=== PATIENT | male | born 1985 | race Caucasian/White ===

== ENCOUNTER 2021-06-04 12:37 | Emergency (ER) | payer OTHER, SELFPAY ==
[2021-06-04 12:45] VITALS: BP 140/81; PULSE 81; RESP 16; TEMP 36.4; O2SAT 97
[2021-06-04 13:16] LABS: COVID19 -Nasal RAPID POSITIVE (Negative)
--- NOTE | 2021-06-06 10:33 | ED_ITS ---
HPI - URI/Sore Throat <Jaret Medina PA-C - Last Filed: 06/06/21 10:41> General Chief Complaint: Upper Respiratory Symptoms Stated Complaint: Cough, sinus congestion Time Seen by Provider: 06/04/21 13:21 Source: patient Mode of arrival: Ambulatory Limitations: no limitations History of Present Illness HPI Narrative: 35-year-old male with no reported significant past medical history presents to the ED with 3 days of cough, nasal congestion. Patient's mother was diagnosed with COVID-19 infection. Patient presents to the ED to be tested for COVID-19. Patient denies fever, chills, chest pain, shortness of breath, nausea, vomiting, abdominal pain, diarrhea, constipation, lightheadedness, dizziness, syncope. Patient is vaccinated for COVID-19. Related Data Home Medications Medication Instructions Recorded Confirmed citalopram 20 mg tablet 20 mg PO QAM 06/04/21 06/04/21 Allergies Allergy/AdvReac Type Severity Reaction Status Date / Time No Known Drug Allergies Allergy Verified 06/04/21 12:51 Review of Systems <Jaret Medina PA-C - Last Filed: 06/06/21 10:41> Constitutional Constitutional: Denies chills, Denies fatigue, Denies fever(s), Denies frequent falls, Denies lethargy and Denies weakness Eyes Eyes: Denies change in vision, Denies eye discharge, Denies irritation and Denies loss of vision ENT Ears, Nose, Mouth, and Throat: Denies change in voice, Denies dizziness, Reports nasal congestion, Reports nasal discharge, Denies neck pain, Denies sore throat and Denies throat swelling Cardiovascular Cardiovascular: Denies chest pain, Denies irregular heart rhythm, Denies lightheadedness, Denies palpitations, Denies dyspnea, Denies dyspnea on exertion and Denies orthopnea Respiratory Respiratory: Reports cough, Denies dyspnea, Denies dyspnea on exertion and Denie s wheezing Gastrointestinal Gastrointestinal: Denies abdominal pain, Denies change in bowel habits, Denies diarrhea, Denies nausea and Denies vomiting Musculoskeletal Musculoskeletal: Denies neck pain and Denies numbness Integumentary/Breasts Skin/Breast: Denies pruritus, Denies erythema, Denies rash and Denies wounds Neurologic Neurologic: Denies behavioral changes, Denies confusion, Denies dizziness, Denies frequent falls, Denies loss of vision, Denies numbness and Denies weakness Psychiatric Psychiatric: Denies anxiety, Denies behavioral changes, Denies confusion, Denies depression, Denies homicidal ideation and Denies suicidal ideation Endocrine Endocrine: Denies fatigue, Denies flushing and Denies palpitations Hematologic/Lymphatic Hematologic/Lymphatic: Denies easy bruising Allergic/Immunologic Allergic/Immunologic: Denies urticaria, Denies throat swelling and Denies wheezing Patient History <Jaret Medina PA-C - Last Filed: 06/06/21 10:41> Social History Smoking Status: Current some day smoker Smoking Status: Current some day smoker tobacco type: vaping alcohol intake frequency: other Substance Use Type: does not use Exam <Jaret Medina PA-C - Last Filed: 06/06/21 10:41> Initial Vital Signs Initial Vital Signs: Vital Signs Temperature 97.5 F L 06/04/21 12:45 Pulse Rate 81 06/04/21 12:45 Respiratory Rate 16 06/04/21 12:45 Blood Pressure 140/81 06/04/21 12:45 Pulse Oximetry 97 06/04/21 12:45 Const General: cooperative HENMT Head: normocephalic and atraumatic Ears: external ears normal and TM's normal bilaterally Nose: external nose normal and No nasal discharge Face and sinus: sinuses nontender, face symmetric, no sinus tenderness and No dry mucous membranes Mouth: oral mucosae normal and moist mucous membranes Teeth and gingiva: dentition normal Throat: tonsils normal and uvula midline Eyes General: appearance normal, both eyes and all related structures Eyelids: eyelids normal Conjunctivae: conjunctivae normal Sclera: sclerae normal Pupils: PERRL EOM: EOM intact bilaterally Neck Neck: normal visual inspection, trachea midline, No lymphadenopathy, No midline deformity and No JVD Lymphatic: No lymphedema Chest Chest: normal inspection of the chest Resp Effort & Inspection: normal respiratory effort, able to speak in complete sentences, no respiratory distress and no use of accessory muscles Auscultation: clear to auscultation bilaterally, no rales, no rhonchi and no wheezes Cardio Rate: regular rate Rhythm: regular rhythm Heart Sounds: no click, no gallops, no murmurs and no rubs Pulses: normal peripheral pulses GI Inspection: non-distended Palpation: soft, no hepatosplenomegaly, No guarding, No pulsatile mass and No tender Auscultation: normal bowel sounds Back/Spine/Pelvis Back: No CVA tenderness Cervical Spine: cervical ROM normal and No pain with cervical ROM Thoracic/Lumbar Spine: thoracic and lumbar spine normal to inspection Skin General: no rashes or lesions noted, No jaundice and No petechiae Neuro General: patient alert, patient oriented x3, gait normal and no focal motor deficits Speech: speech normal Extrem General: full ROM, no clubbing, cyanosis or edema, no pedal edema and no calf tenderness Psych Appearance: well kempt Mental Status: mental status grossly normal Attitude: cooperative Thought Content: normal and suicidality Judgment: judgment good <Imelda Javed DO - Last Filed: 06/07/21 08:23> Initial Vital Signs Initial Vital Signs: Vital Signs Temperature 97.5 F L 06/04/21 12:45 Pulse Rate 81 06/04/21 12:45 Respiratory Rate 16 06/04/21 12:45 Blood Pressure 140/81 06/04/21 12:45 Pulse Oximetry 97 06/04/21 12:45 Course <Jaret Medina PA-C - Last Filed: 06/06/21 10:41> Course Course Narrative: COVID-19 positive. Will discharge home with ED return precautions. MDM - URI/Sore Throat <Jaret Medina PA-C - Last Filed: 06/06/21 10:41> Lab Data Labs: Lab Results 06/04/21 Range/Units 12:52 SARS-CoV-2 (PCR) Positive H (Negative) MDM Narrative Medical decision making narrative: 35-year-old male with no reported significant past medical history presents to the ED with 3 days of cough, nasal congestion. Concern for COVID-19 infection versus other URI. vital signs andphysical exam reassuring, unlikely pneumonia. Will order a COVID-19 test. Will discharge home wiith ED return precautions. <DO Mandy Walls Last Filed: 06/07/21 08:23> Lab Data Labs: Lab Results 06/04/21 Range/Units 12:52 SARS-CoV-2 (PCR) Positive H (Negative) Discharge Plan Departure Patient Disposition: Home Clinical Impression: COVID-19 Instructions: DI for COVID-19 (Suspected or Confirmed ) Activity Restrictions/Additional Instructions: You have been diagnosed with the COVID-19 infection today. You can take ibuprofen or Tylenol for symptoms, stay hydrated. Return to the ED if you experience increasing shortness of breath, chest pain. Please isolate for the next 7-10 days, continue masking and handwashing. Prescriptions: No Action citalopram 20 mg tablet 20 mg PO QAM RF: 0 <Imelda Javed DO - Last Filed: 06/07/21 08:23> Cosign ED Attending Waqas Attestation: I was immediately available in the department for consultation. Documentation has been reviewed. I agree with assessment and plan.
== END 2021-06-04 14:00 | disposition home or self-care (01) ==
PROVIDERS: Emergency Medicine; Emergency Provider Student in an Organized Health Care Education/Training Program
DX: U07.1 COVID-19 (principal)
CPT/HCPCS: 87635; 99281; 99282; C9803